=== PATIENT | female | born 1995 | race Caucasian/White ===

== ENCOUNTER 2019-04-06 17:45 | Emergency (ER) | payer OTHER ==
[~2019-04-06] VITALS: Ht 167.6 cm; Wt 63.5 kg
[2019-04-06 17:49] VITALS: BP 131/72
== END 2019-04-06 21:22 | disposition home or self-care (01) ==
LOC: ER 17:45
DX: R00.2 Palpitations (principal); J45.909 Unspecified asthma, uncomplicated
CPT/HCPCS: 71045-TC